=== PATIENT | male | born 1970 | race Caucasian/White ===

== ENCOUNTER 2019-05-02 16:21 | Outpatient (CLI) | payer BC, SELFPAY ==
--- NOTE | ~2019-05-02 | XR_ITS ---
XR abdomen/kub 1V 05/02/2019 16:47 Indication: Right ureteral stone follow-up. Low back pain. Procedure: KUB Comparison: 04/11/2019 Findings: There is a proximal right ureteral stone at the L2-3 level, not significantly changed. Righ t internal ureteral stent position in expected location. Bowel pattern is nonobstructive. No acute os seous abnormality. Impression: 1: Stable position to right proximal ureteral stone at the L2-3 level with adjacent stent in expected location. Reviewed, dictated and finalized at location A. INE COREMAKER Impression: 1: Stable position to right proximal ureteral stone at the L2-3 level with day cent stent in expected location.
== END 2019-05-02 16:22 | disposition home or self-care (01) ==
LOC: ANHIMG 16:24
PROVIDERS: PCP Physician Assistant; Visit Provider Urology
DX: N20.1 Calculus of ureter (principal)
CPT/HCPCS: 74018

== ENCOUNTER 2019-05-09 16:25 | Outpatient (CLI) | payer BC, SELFPAY | END 2019-05-09 16:26 | disposition home or self-care (01) | LOC: ANHLAB 16:27 | PROVIDERS: PCP Physician Assistant; Visit Provider Urology | DX: N20.1 Calculus of ureter (principal) | CPT/HCPCS: 87086 ==

== ENCOUNTER 2019-05-12 01:06 | Day surgery (SDC) | payer BC, SELFPAY ==
[2019-05-04 16:04] VITALS: BMI 31.8
[2019-05-12] VITALS (8 sets, daily range): BP systolic 99–128; BP diastolic 60–88; PULSE 66–86; RESP 12–16; TEMP 36.5–36.6; O2SAT 94–100; BMI 30.8
--- NOTE | ~2019-05-12 | XR_ITS ---
EXAMINATION: XR retrograde pyelo w/stent RT DATE: 05/12/2019 08:09 INDICATION: Right ureteral stone. TECHNIQUE: 6 intraoperative fluoroscopic views of the abdomen and pelvis were obtained. I was not pre sent. Fluoroscopy exposure time was 12 seconds. COMPARISON: Abdomen radiographs 05/02/2019 FINDINGS: The initial radiographs demonstrate a stone in the proximal right ureter and a right sports marketing internship al ureteral stent in expected position. Subsequent images demonstrate removal of the stone and exchan ge for a new internal ureteral stent. IMPRESSION: 1. Right ureteral stone removal. 2. New right internal ureteral stent in expected position. Reviewed, dictated and finalized at location A. N PROJECTILE
--- NOTE | 2019-05-12 06:32 | WPDANESEPPF ---
Anes - Initial Pre Proc Eval Procedure: Operation Date: 05/12/19 07:30 Proposed Procedures p Cystoscopy, Right Ureteroscopy, Right Retrograde Pyelogram, Right Stone Extraction, Right Stent Placement - Reymundo Melgoza MD s Holmium Laser Procedure - Reymundo Melgoza MD Date/Time: 05/12/19 06:32 Surgeon: Reymundo Melgoza MD Pre Op Diagnosis: Right Ureteral Stones Patient Data Age: 48 Gender: M Height: 6 ft Weight: 106.59 kg Allergies Allergy/AdvReac Type Severity Reaction Status Date / Time No Known Allergies Allergy Verified 05/04/19 16:07 Home Medications Medication Instructions Recorded Confirmed Type atorvastatin 20 mg PO QPM 04/03/19 05/04/19 History lisinopril 20 mg PO QPM 04/03/19 05/04/19 History metformin 1,000 mg PO DAILY 04/03/19 05/04/19 History omeprazole 20 mg PO HS 04/03/19 05/04/19 History Patient hx anesthesia problems: none Family hx anesthesia problems: none PMFSH Past Medical History Medical History Diabetes GERD (gastroesophageal reflux disease) Hyperlipidemia Hypertension Surgical History Surgical History No significant past surgical history Social History Social History Additional smoking assessment comments: Does not smoke Gender identity (if verbalized by the patient): Male Anes - Eval Final PreProcedure Day of Procedure 05/12/19 06:32 Patient weight: obese Heart: regular rate and rhythm Lungs: clear to auscultation Airway: Mallampati scale class II Neurological: alert and oriented Last oral intake: >/= 8 hours ASA classification: III Emergent: no Anesthetic plan: proceed Anesthesia type and monitoring: general LMA and standard monitoring Informed Consent: The patient's anesthetic plan and its attendant risks and benefits were discussed with the patient/family/POA. Questions were solicited and answers provided to the satisfaction of the patient/family/POA.
--- NOTE | 2019-05-12 06:40 | WPDHPUPDATE1 ---
History and Physical Update Update Date/Time: 05/12/19 06:40 History and Physical has been reviewed, including an updated exam of the patient. There are NO changes in the patient's condition. Risks, benefits, and alternatives have been discussed and questions answered. Patient agrees to proceed with procedure.
[2019-05-12] MEDS: LACTATED RINGERS 1,000 ML 30 ML IV CONT ×2 (07:00→08:13)
[2019-05-12] MEDS: ceFAZolin 2 GM/D5W 50 ML 2 GM/50 ML BAG IVPB (07:07)
[2019-05-12] MEDS: LIDOCAINE HCL 2% GEL UROJET 10 ML PKG MUCOUS MEM (07:23)
--- NOTE | 2019-05-12 07:58 | SUR.PREOP ---
Blood Glucose 150 at 0700
--- NOTE | 2019-05-12 08:08 | PM.PROC ---
Procedure Note - Detailed Date of procedure: 05/12/19 Pre-op diagnosis: Right Ureteral Stones Post-op diagnosis: same Procedure performed: Cystoscopy, right retrograde pyelogram, right ureteroscopy with holmium laser, stone extraction, right stent exchange, 4 Croatian contour stent Description of procedure: Patient was taken to the operative suite and correctly identified. Once general anesthesia was obtained he was placed in the dorsal lithotomy position prepped and draped in usual sterile fashion. Twenty-two Croatian scope was inserted into the bladder. The stent was retrieved and brought out the meatus. The Bentson wire was inserted. Ureteral access sheath was placed. Mini flexible ureteral scope was inserted. The stone was fairly large and impacted. Using a 273 micron fiber we fragmented the stone in multiple pieces. It was extremely hard stone. All the large pieces were retrieved and sent for analysis. Pyelogram was then performed to confirm placement of the stent. 4.8 Croatian contour stent was then placed with the proximal end coiled in the renal pelvis and the distal end in bladder. Bladder was drained 2% viscous lidocaine was inserted into the urethra and patient was taken to recovery room in stable condition. He will be discharged home with pain meds and antibiotics. He will follow up in a week's time for stent removal. Anesthesia: GLMA Surgeon: Reymundo Melgoza MD Drains: Yes Packing: No Pathology: yes Complications: No immediate complications Condition: stable Disposition: PACU
[2019-05-12 08:20] LABS: Glucose Point of Care 157 (65-105)
[2019-05-12 11:14] LABS: Glucose Point of Care 150 (65-105)
== END 2019-05-12 09:45 | disposition home or self-care (01) ==
PROVIDERS: PCP Physician Assistant; Visit Provider Urology
PROC: (CPT 52352; principal; 2019-05-12 07:30)
PROC: (CPT 52356; 2019-05-12 07:30)
DX: N20.1 Calculus of ureter (principal); I10 Essential (primary) hypertension; E78.5 Hyperlipidemia, unspecified; E11.9 Type 2 diabetes mellitus without complications; K21.9 Gastro-esophageal reflux disease without esophagitis; Z79.84 Long term (current) use of oral hypoglycemic drugs; E66.9 Obesity, unspecified; Z68.30 Body mass index [BMI] 30.0-30.9, adult
CPT/HCPCS: 52356; 74420; 82365; 88300; A9270; C1758; C1769; C1894; C2617; J0131; J0690; J1100; J2250; J2405; J2704; J3010; J7120; Q9966

== ENCOUNTER 2023-06-05 16:09 | Outpatient (CLI) | payer BC, SELFPAY ==
--- NOTE | ~2023-06-05 | XR_ITS ---
XR elbow LT min 3V DATE: 06/05/2023 16:22 INDICATION: Left elbow pain TECHNIQUE: 4 views COMPARISON: None FINDINGS: No fracture or dislocation or joint effusion. No periosteal reaction or bone destruction. IMPRESSION: Negative Reviewed, dictated and finalized at location B. IMPRESSION: Negative
== END 2023-06-05 16:10 | disposition home or self-care (01) ==
LOC: ANHIMG 16:12
PROVIDERS: PCP Family Medicine; Visit Provider Physician Assistant
DX: M25.512 Pain in left shoulder (principal)
CPT/HCPCS: 73080